=== PATIENT | female | born 1960 | race Caucasian/White ===

== ENCOUNTER → 2016-05-20 | Outpatient (REF) | payer BC, OTHER ==
[2016-05-20 14:05] LABS: PERCENT SATURATION 13.2 % (13.2-37.4)
== END ==
LOC: M LAB REF 13:10
PROVIDERS: ATTEND Internal Medicine Medical Oncology
DX: D68.9 Coagulation defect, unspecified (principal)

== ENCOUNTER → 2016-07-13 | Outpatient (REF) | payer BC | LOC: M LAB REF 09:30 | PROVIDERS: ATTEND Physician Assistant | DX: N76.0 Acute vaginitis (principal) ==

== ENCOUNTER → 2016-09-21 | Outpatient (CLI) | payer BC, OTHER ==
--- NOTE | 2016-09-21 18:17 | REP ---
Clinical: Trauma. Technique: AP and lateral views of the right tibia / fibula. Findings: Osseous structures, joint spaces, and surrounding soft tissues are normal. No acute fracture dislocation. No subcutaneous emphysema or radiodense foreign body. Impression: Normal right tibia / fibula radiographs. Signed by Jonathan Covington MD 09/21/2016 06:09 P
== END ==
LOC: M ADAMS 17:46
PROVIDERS: ATTEND Physician Assistant
DX: M79.661 Pain in right lower leg (principal)

== ENCOUNTER → 2016-12-21 | Outpatient (REF) | payer MEDICAID ==
[~2016-12-21] MED LIST: ACID1CAP PO; ALBU17IN INH; ALBU83IN INH; AZEL0.1S3; CETI10TA PO; ESCI10TA2 PO; FURO20TA2 PO; IBUP40TA PO; MELA10CA PO; NORE0.353 PO; PANT40TA2 PO; PROBCAP4 PO; RANI150T PO; SYMB16INH INH; TRAZO50TA PO; TYLE325T5 PO
== END ==
LOC: M SFHCWAGY 08:00
PROVIDERS: ATTEND Nurse Practitioner Family
DX: Z01.419 Encounter for gynecological examination (general) (routine) without abnormal findings (principal)

== ENCOUNTER → 2016-12-21 | Outpatient (REF) | payer MEDICAID | LOC: M SFHCWAGY 08:40 | PROVIDERS: ATTEND Nurse Practitioner Family | DX: Z01.419 Encounter for gynecological examination (general) (routine) without abnormal findings (principal) ==

== ENCOUNTER → 2016-12-30 | Outpatient (REF) | payer OTHER, MEDICAID | LOC: M SFHCWAGY 13:30 | PROVIDERS: ATTEND Nurse Practitioner Family | DX: L29.8 Other pruritus (principal); R30.0 Dysuria ==

== ENCOUNTER → 2017-01-08 | Outpatient (CLI) | payer OTHER ==
[~2017-01-08] VITALS: Ht 154.9 cm; Wt 65.3 kg
[~2017-01-08] MED LIST changes: +LIDOCAINE 2% INJ 100 MG/5 ML SDV (FOR ANES.) As Ordered ONE; +NS 1,000 ML IV ONE; +PROPOFOL 200 MG/20 ML VIAL As Ordered ONE; +fentaNYL 100 MCG/2 ML INJECTION (J3010) As Ordered ONE
--- NOTE | 2017-01-08 12:56 | ROOR ---
Patient Name: Winnie Shen Procedure Date: 01/08/2017 12:18 PM Date of : 1960 Age: 56 Room: [facility] Gender: Female Note Status: Finalized Procedure: Colonoscopy Indications: Iron deficiency anemia Providers: Saud Gracia MD Referring MD: Waleska HASTINGS MD Requesting Provider: Medicines: Monitored Anesthesia Care Complications: No immediate complications. Procedure: Pre-Anesthesia Assessment: - Prior to the procedure, a History and Physical was performed, and patient medications and allergies were reviewed. The patient is competent. The risks and benefits of the procedure and the sedation options and risks were discussed with the patient. All questions were answered and informed consent was obtained. Patient identification and proposed procedure were verified by the physician, the nurse and the mental health orderly in the procedure room. Mental Status Examination: alert and oriented. Airway Examination: normal oropharyngeal airway and neck mobility. Respiratory Examination: clear to auscultation. CV Examination: normal. Prophylactic Antibiotics: The patient does not require prophylactic antibiotics. Prior Anticoagulants: The patient has taken no previous anticoagulant or antiplatelet agents. ASA Grade Assessment: II - A patient with mild systemic disease. After reviewing the risks and benefits, the patient was deemed in satisfactory condition to undergo the procedure. The anesthesia plan was to use monitored anesthesia care (MAC). Immediately prior to administration of medications, the patient was re-assessed for adequacy to receive sedatives. The heart rate, respiratory rate, oxygen saturations, blood pressure, adequacy of pulmonary ventilation, and response to care were monitored throughout the procedure. The physical status of the patient was re-assessed after the procedure. The Colonoscope was introduced through the anus and advanced to the terminal ileum, with identification of the appendiceal orifice and IC valve. The colonoscopy was performed without difficulty. The patient tolerated the procedure well. The quality of the bowel preparation was good. The terminal ileum, ileocecal valve, appendiceal orifice, and rectum were photographed. Scope insertion time was 3 minutes. Scope withdrawal time was 10 minutes. The total duration of the procedure was 14 minutes. Findings: The perianal and digital rectal examinations were normal. The terminal ileum appeared normal. A 3 mm polyp was found in the transverse colon. The polyp was sessile. The polyp was removed with a cold biopsy forceps. Resection and retrieval were complete. Verification of patient identification for the specimen was done by the physician and nurse using the patient's name, date and medical record number. Estimated blood loss was minimal. Non-bleeding external and internal hemorrhoids were found during retroflexion. The hemorrhoids were small. Anal papilla(e) were hypertrophied. Biopsies were taken with a cold forceps for histology. Impression: - The examined portion of the ileum was normal. - One 3 mm polyp in the transverse colon, removed with a cold biopsy forceps. Resected and retrieved. - Non-bleeding external and internal hemorrhoids. - Anal papilla(e) were hypertrophied. Biopsied. Recommendation: - Patient has a contact number available for emergencies. The signs and symptoms of potential delayed complications were discussed with the patient. Return to normal activities tomorrow. Written discharge instructions were provided to the patient. - Resume previous diet. - Continue present medications. - Await pathology results. - Repeat colonoscopy in 5-10 years for surveillance based on pathology results. - To schedule HRA or flexible sigmoidscopy based on pathology. - Return to GI clinic as previously scheduled on 01/22/2017 at 9:00 AM. - Return to primary care physician. Saud Gracia MD Saud Gracia MD 01/08/2017 12:56:35 PM This report has been signed electronically. Number of Addenda: 0 Note Initiated On: 01/08/2017 12:18 PM Estimated Blood Loss: Estimated blood loss was minimal.
--- NOTE | 2017-01-08 12:59 | ROOR ---
Patient Name: Winnie Shen Procedure Date: 01/08/2017 12:18 PM Date of : 1960 Age: 56 Room: [facility] Gender: Female Note Status: Finalized Procedure: Upper GI endoscopy Indications: Iron deficiency anemia, Heme positive stool Providers: Saud Gracia MD Referring MD: Waleska HASTINGS MD Requesting Provider: Medicines: Monitored Anesthesia Care Complications: No immediate complications. Procedure: Pre-Anesthesia Assessment: - Prior to the procedure, a History and Physical was performed, and patient medications and allergies were reviewed. The patient is competent. The risks and benefits of the procedure and the sedation options and risks were discussed with the patient. All questions were answered and informed consent was obtained. Patient identification and proposed procedure were verified by the physician, the nurse and the configuration management advisor in the procedure room. Mental Status Examination: alert and oriented. Airway Examination: normal oropharyngeal airway and neck mobility. Respiratory Examination: clear to auscultation. CV Examination: normal. Prophylactic Antibiotics: The patient does not require prophylactic antibiotics. Prior Anticoagulants: The patient has taken no previous anticoagulant or antiplatelet agents. ASA Grade Assessment: II - A patient with mild systemic disease. After reviewing the risks and benefits, the patient was deemed in satisfactory condition to undergo the procedure. The anesthesia plan was to use monitored anesthesia care (MAC). Immediately prior to administration of medications, the patient was re-assessed for adequacy to receive sedatives. The heart rate, respiratory rate, oxygen saturations, blood pressure, adequacy of pulmonary ventilation, and response to care were monitored throughout the procedure. The physical status of the patient was re-assessed after the procedure. The Endoscope was introduced through the mouth, and advanced to the second part of duodenum. The upper GI endoscopy was accomplished without difficulty. The patient tolerated the procedure well. Findings: The examined esophagus was normal. Whitish plaques noted- easily scrapped with scope. Biopsied. Multiple 6 to 10 mm sessile fundic gland polyps with no bleeding and no stigmata of recent bleeding were found in the gastric fundus and in the gastric body. The polyp was removed with a cold biopsy forceps. Resection and retrieval were complete. Verification of patient identification for the specimen was done by the physician and nurse using the patient's name, date and medical record number. Estimated blood loss was minimal. The duodenal bulb and second portion of the duodenum were normal. Biopsies for histology were taken with a cold forceps for evaluation of celiac disease. Impression: - Normal esophagus. - Multiple fundic gland polyps. Resected and retrieved. - Normal duodenal bulb and second portion of the duodenum. Biopsied. Recommendation: - Patient has a contact number available for emergencies. The signs and symptoms of potential delayed complications were discussed with the patient. Return to normal activities tomorrow. Written discharge instructions were provided to the patient. - Resume previous diet. - Continue present medications. - Await pathology results. - Return to GI clinic as previously scheduled. - Return to primary care physician. Saud Gracia MD Saud Gracia MD 01/08/2017 12:59:19 PM This report has been signed electronically. Number of Addenda: 0 Note Initiated On: 01/08/2017 12:18 PM Estimated Blood Loss: Estimated blood loss was minimal.
[2017-01-08 13:13] VITALS: BP 155/73
== END ==
LOC: M OPP 10:29
PROVIDERS: ATTEND Internal Medicine Gastroenterology
DX: D50.9 Iron deficiency anemia, unspecified (principal); R19.5 Other fecal abnormalities; D12.3 Benign neoplasm of transverse colon; K62.89 Other specified diseases of anus and rectum; K64.4 Residual hemorrhoidal skin tags; K64.8 Other hemorrhoids; K31.7 Polyp of stomach and duodenum; K31.89 Other diseases of stomach and duodenum; K21.9 Gastro-esophageal reflux disease without esophagitis; R60.0 Localized edema; Z87.19 Personal history of other diseases of the digestive system; R12 Heartburn; F41.9 Anxiety disorder, unspecified; F32.9 Major depressive disorder, single episode, unspecified; J45.909 Unspecified asthma, uncomplicated; G47.30 Sleep apnea, unspecified; R06.83 Snoring; Z87.440 Personal history of urinary (tract) infections; Q60.0 Renal agenesis, unilateral; F12.20 Cannabis dependence, uncomplicated; Z88.8 Allergy status to other drugs, medicaments and biological substances
CPT/HCPCS: 43239; 45380; 88305; J3010

== ENCOUNTER → 2017-01-22 | Outpatient (CLI) | payer OTHER ==
[~2017-01-22] MED LIST changes: -LIDOCAINE 2% INJ 100 MG/5 ML SDV (FOR ANES.) As Ordered ONE; -NS 1,000 ML IV ONE; -PROPOFOL 200 MG/20 ML VIAL As Ordered ONE; -fentaNYL 100 MCG/2 ML INJECTION (J3010) As Ordered ONE
[2017-01-22 10:35] LABS: BASO % 0.3 % (0.0-1.0); EOS # 0.1 K/mm3 (0.0-0.50); EOS % 1.2 % (0.0-3.0); LARGE UNSTAINED CELL # 0.1 K/mm3 (0.0-0.4); LARGE UNSTAINED CELL % 1.7 % (0.0-4.0); LYMPH # 1.4 K/mm3 (1.5-4.5); LYMPH % 18.3 % (24.0-44.0); MEAN CORPUSCULAR HEMOGLOBIN 29.5 pg (27.0-33.0); MEAN CORPUSCULAR HGB CONC 34.3 g/dl (32.0-36.5); MEAN CORPUSCULAR VOLUME 86.2 fl (80.0-96.0); MONO # 0.3 K/mm3 (0.0-0.8); MONO % 4.1 % (0.0-5.0); NEUTROPHILS # 5.7 K/mm3 (1.8-7.7); NEUTROPHILS % 74.5 % (36.0-66.0); PLATELET COUNT, AUTOMATED 252 k/mm3 (150-450); RED CELL DISTRIBUTION WIDTH 14.2 % (11.5-14.5); WHITE BLOOD COUNT 7.7 K/mm3 (4.0-10.0)
[2017-01-22 10:57] LABS: PERCENT SATURATION 16.9 % (13.2-45.0)
== END ==
LOC: M LAB 10:07
PROVIDERS: ATTEND Internal Medicine Gastroenterology
DX: D50.0 Iron deficiency anemia secondary to blood loss (chronic) (principal)

== ENCOUNTER → 2017-02-08 | Outpatient (CLI) | payer OTHER ==
--- NOTE | 2017-02-08 08:54 | REPMRS ---
Patient History The patient states she had a clinical breast exam in 02/16 Patient is postmenopausal. No known family history of cancer. Took unspecified hormones for 2 months. Digital Woman Screen Mammo: February 08, 2017 - Exam #: [id number] Bilateral CC and MLO view(s) were taken. Technologist: Yaz Peres, Technologist Prior study comparison: February 19, 2016, digital woman screen mammo performed at [facility]. December 18, 2014, digital woman screen mammo performed at [facility]. July 22, 2011, digital woman screen mammo performed at [facility]. FINDINGS: The breast tissue is heterogeneously dense. This may lower the sensitivity of mammography. There is a moderate amount of heterogeneously dense fibroglandular tissue which is fairly symmetric. There is no interval development of dominant mass, architectural distortion, or clustered microcalcification typical of malignancy. There has been no change in the appearance of the mammogram from the prior studies. ASSESSMENT: BI-RADS/ACR category 1 mammogram. Negative. Recommendation Routine screening mammogram of both breasts in 1 year (for women over age 40). This mammogram was interpreted with the aid of an FDA-approved computer-aided dectection system. Electronically Signed By: Zafar Hunt MD 02/08/17 [id number]
== END ==
LOC: M WHC 07:50
PROVIDERS: ATTEND Nurse Practitioner Family
DX: Z12.31 Encounter for screening mammogram for malignant neoplasm of breast (principal)

== ENCOUNTER → 2017-06-28 | Outpatient (REF) | payer BC | LOC: M LAB REF 09:23 | DX: R30.0 Dysuria (principal) ==

== ENCOUNTER → 2017-08-06 | Outpatient (REF) | payer BC | LOC: M LAB REF 10:13 | DX: R30.0 Dysuria (principal) | CPT/HCPCS: 87086 ==

== ENCOUNTER → 2017-10-18 | Outpatient (REF) | payer BC | LOC: M LAB REF 16:16 | DX: R10.30 Lower abdominal pain, unspecified (principal) | CPT/HCPCS: 87086 ==

== ENCOUNTER → 2017-10-28 | Outpatient (CLI) | payer BC | LOC: M WHC 08:07 | DX: R10.2 Pelvic and perineal pain (principal) | CPT/HCPCS: 76830 ==

== ENCOUNTER 2017-12-14 08:42 | Emergency (ER) | payer BC ==
[2017-12-14] MEDS: NS 1,000 ML IV (09:30)
[2017-12-14 09:52] LABS: BASO % 0.2 % (0.0-1.0); EOS # 0.1 10^3/uL (0.0-0.50); EOS % 1.2 % (0.0-3.0); HEMATOCRIT 40.5 % (36.0-47.0); HEMOGLOBIN 13.4 g/dl (12.0-15.5); IMMATURE GRANULOCYTE % 0.5 % (0-3.0); LYMPH # 1.6 10^3/uL (1.5-4.5); LYMPH % 15.5 % (24.0-44.0); MEAN CORPUSCULAR HEMOGLOBIN 30.7 pg (27.0-33.0); MEAN CORPUSCULAR HGB CONC 33.1 g/dl (32.0-36.5); MEAN CORPUSCULAR VOLUME 92.7 fl (80.0-96.0); MONO # 0.5 10^3/uL (0.0-0.8); MONO % 4.9 % (0.0-5.0); NEUTROPHILS % 77.7 % (36.0-66.0); PLATELET COUNT, AUTOMATED 204 10^3/uL (150-450); RED BLOOD COUNT 4.37 10^6/uL (4.00-5.40); RED CELL DISTRIBUTION WIDTH 13.9 % (11.5-14.5); WHITE BLOOD COUNT 10.3 10^3/uL (4.0-10.0)
[2017-12-14 10:28] LABS: ALBUMIN 3.6 GM/DL (3.2-5.2); ALKALINE PHOSPHATASE 79 U/L (45-117); ALT/SGPT 16 U/L (12-78); AMYLASE 60 U/L (25-115); ANION GAP 6 MEQ/L (8-16); APPEARANCE, URINE CLOUDY (CLEAR); AST/SGOT 9 U/L (7-37); BACTERIA, URINE AUTO 2+ (NEGATIVE); BILIRUBIN, URINE AUTO NEGATIVE (NEGATIVE); BILIRUBIN,DIRECT 0.2 MG/DL (0.0-0.2); BILIRUBIN,TOTAL 0.8 MG/DL (0.2-1.0); BLOOD UREA NITROGEN 8 MG/DL (7-18); BLOOD, URINE BLOOD 1+ (NEGATIVE); CALCIUM LEVEL 8.1 MG/DL (8.5-10.1); CARBON DIOXIDE LEVEL 29 MEQ/L (21-32); CHLORIDE LEVEL 106 MEQ/L (98-107); COLOR, URINE YELLOW (YELLOW); CREATININE FOR GFR 0.82 MG/DL (0.55-1.30); FREE THYROXINE INDEX 2.7 % (1.3-4.8); GLOMERULAR FILTRATION RATE > 60.0 (>51); GLUCOSE, FASTING 96 MG/DL (70-100); GLUCOSE, URINE (UA) AUTO NEGATIVE (NEGATIVE); KETONE, URINE AUTO NEGATIVE (NEGATIVE); LEUKOCYTE ESTERASE, URINE AUTO 2+ (NEGATIVE); LIPASE 178 U/L (73-393); MUCUS, URINE SMALL (NEGATIVE); NITRITE, URINE AUTO NEGATIVE (NEGATIVE); POTASSIUM SERUM 3.5 MEQ/L (3.5-5.1); PROTEIN, URINE AUTO NEGATIVE (NEGATIVE); RBC, URINE AUTO 2 /HPF (0-3); RENAL EPITHELIAL CELLS 1 /HPF; SODIUM LEVEL 141 MEQ/L (136-145); SQUAMOUS EPITHELIAL CELL UR AU 27 /HPF (0-6); T UPTAKE 34 % (30-39); TOTAL PROTEIN 7.2 GM/DL (6.4-8.2); TRANSITIONAL EPITHELIAL AUTO 1 /HPF; UROBILINOGEN, URINE AUTO 0.2 mg/dL (0.0-2.0); WBC, URINE AUTO 4 /HPF (0-3)
[2017-12-14] MEDS: METOCLOPRAMIDE INJ 10MG/2ML VIAL (J2765) IV (10:52)
[2017-12-14] MEDS: KETOROLAC 30 MG/ML VIAL (J1885) IV (10:57)
[2017-12-14] MEDS: NS 500 ML IV (12:28)
[2017-12-14] MEDS ORDERED: ISOVUE-370 76% 100ML VIAL (Q9967) As Ordered (12:30)
== END 2017-12-14 13:25 | disposition home or self-care (01) ==
LOC: M ED 08:42
DX: R11.2 Nausea with vomiting, unspecified (principal); R61 Generalized hyperhidrosis; R19.7 Diarrhea, unspecified; J45.909 Unspecified asthma, uncomplicated; K21.9 Gastro-esophageal reflux disease without esophagitis; F41.9 Anxiety disorder, unspecified; Z90.5 Acquired absence of kidney; Z88.8 Allergy status to other drugs, medicaments and biological substances; Z79.899 Other long term (current) drug therapy
CPT/HCPCS: Q9967

== ENCOUNTER → 2017-12-22 | Outpatient (REF) | payer BC ==
[2017-12-22 18:40] LABS: C REACTIVE PROTEIN QUANTITATIV 0.31 MG/DL (0.00-0.30); LIPASE 192 U/L (73-393)
[2017-12-22 18:40] LABS: AMYLASE 68 U/L (25-115)
== END ==
LOC: M LAB REF 17:07
DX: R61 Generalized hyperhidrosis (principal); R11.0 Nausea
CPT/HCPCS: 82150

== ENCOUNTER → 2017-12-24 | Outpatient (REF) | payer BC | LOC: M LAB REF 12:52 | DX: R19.7 Diarrhea, unspecified (principal) | CPT/HCPCS: 87507 ==

== ENCOUNTER → 2018-05-13 | Outpatient (CLI) | payer OTHER ==
[~2018-05-13] MED LIST changes: +FLON1SPR; -PANT40TA2 PO; +PANT40TA3 PO; +REGL10TA6 PO
--- NOTE | 2018-05-13 10:47 | REP ---
MRI BRAIN WITHOUT AND WITH CONTRAST: HISTORY: Mixed left hearing loss. Several punctate areas of increased signal intensity on T2-weighted images are present in the subcortical white matter. This represents small vessel ischemic disease. There is no intraparenchymal hemorrhage, infarct, mass or midline shift. There is no abnormal enhancement. The ventricular system and cortical sulci are dilated consistent with minimal volume loss. There is no extracerebral collection. There is no cerebellopontine angle mass. The inner ear structures are normal in appearance. The mastoid air cells are clear. Mucosal thickening is present in the ethmoid, maxillary and left frontal sinuses. IMPRESSION: 1. Minimal small vessel ischemic disease. 2. Minimal volume loss. Electronically Signed by Donny Ramirez MD 05/13/2018 10:50 A
== END ==
LOC: M PLARAD 07:56
PROVIDERS: ATTEND Otolaryngology
DX: H90.A31 Mixed conductive and sensorineural hearing loss, unilateral, right ear with restricted hearing on the contralateral side (principal)

== ENCOUNTER 2018-05-25 06:52 | Day surgery (SDC) | payer OTHER ==
[~2018-05-25] VITALS: Ht 154.9 cm; Wt 68.0 kg
[~2018-05-25 06:52] MED LIST changes: +AZEL1SPR3; +DICY20TA PO
[2018-05-25] MEDS ORDERED: CIPRODEX OTIC SUSP 7.5ML As Ordered ONE (07:10)
[2018-05-25] MEDS ORDERED: PHENYLEPHRINE 0.5% NASAL SPRAY 15 ML As Ordered ONE (07:10)
[2018-05-25] MEDS ORDERED: LIDOCAINE 2% INJ 100 MG/5 ML SDV (FOR ANES.) As Ordered ONE (07:19)
[2018-05-25] MEDS ORDERED: MIDAZOLAM INJ 2 MG/2 ML VIAL (J2250) As Ordered ONE (07:19)
[2018-05-25] MEDS ORDERED: fentaNYL 100 MCG/2 ML INJECTION (J3010) As Ordered ONE (07:19)
[2018-05-25] MEDS ORDERED: PROPOFOL 200 MG/20 ML VIAL As Ordered ONE (07:19)
[2018-05-25] MEDS ORDERED: dexameTHASONE 4 MG/ML 1ML VIAL (J1100) As Ordered ONE (07:48)
[2018-05-25] MEDS ORDERED: KETOROLAC 60 MG/2 ML VIAL (J1885) As Ordered ONE (07:48)
[2018-05-25] MEDS ORDERED: ONDANSETRON 4MG/2ML VIAL (J2405) IV PRN (08:15)
[2018-05-25] MEDS ORDERED: fentaNYL 100 MCG/2 ML INJECTION (J3010) IV PRN (08:15)
[2018-05-25] MEDS ORDERED: LR 1,000 ML IV SCH (08:15)
[2018-05-25 09:05] VITALS: BP 140/67
--- NOTE | 2018-05-25 12:35 | RO ---
DATE OF PROCEDURE: 05/25/2018 PREPROCEDURE DIAGNOSIS: Persistent effusion of the right ear. POSTPROCEDURE DIAGNOSIS: Persistent effusion of the right ear. PROCEDURE PERFORMED: Right tympanostomy. SURGEON: Alejandro Daniel MD INFORMATICA DEVELOPER: ANESTHESIA: General. CLINICAL PREAMBLE: This 57-year-old woman presented to the office complaining of hearing loss in the right ear. Physical examination revealed fluid in the right ear. Nasal endoscopy revealed no evidence of mass lesion in the nasopharyngeal area, including the right fossa of [place]. Management options, including right tympanostomy have been discussed. The patient understood and consented to the procedure. DESCRIPTION OF PROCEDURE: The patient was identified in preoperative holding and brought to the operating room in stable condition. He was laid in supine position on the operating room tablet. The patient received general anesthesia followed by laryngeal intubation. The patient was prepped and draped in the usual fashion for the procedure. The patient's head was turned to the left side to expose the right ear. The ear speculum was inserted and cerumen was debrided and there was good visualization using the operating laryngoscope with binocular magnification. The right tympanic membrane was visualized and found to be intact. Myringotomy incision was made over the anterior-inferior quadrant of the tympanic membrane. The right middle ear was suctioned free of fluid. A 7 mm straight shank tympanostomy tube was inserted. Ciprodex drops were instilled with cotton balls to occlude the ear canal. Sponge and instrument counts were correct. No complications. ESTIMATED BLOOD LOSS: Nil. General anesthesia was reversed and the patient was extubated and brought to the recovery room in stable condition.
== END 2018-05-25 09:20 | disposition home or self-care (01) ==
LOC: M SDC 06:52
PROVIDERS: ATTEND Otolaryngology
DX: H65.192 Other acute nonsuppurative otitis media, left ear (principal); J45.909 Unspecified asthma, uncomplicated; K21.9 Gastro-esophageal reflux disease without esophagitis; F41.9 Anxiety disorder, unspecified; G47.30 Sleep apnea, unspecified; R60.0 Localized edema; K58.9 Irritable bowel syndrome, unspecified; Q60.0 Renal agenesis, unilateral; F32.9 Major depressive disorder, single episode, unspecified; R51 Headache; R06.83 Snoring; G47.33 Obstructive sleep apnea (adult) (pediatric); J30.89 Other allergic rhinitis; Z91.09 Other allergy status, other than to drugs and biological substances; Z79.899 Other long term (current) drug therapy
CPT/HCPCS: 69436; J1100; J2250; J3010

== ENCOUNTER → 2019-01-07 | Outpatient (REF) | payer OTHER ==
[~2019-01-07] MED LIST changes: +TRAZ1TAB10 PO; -TRAZO50TA PO
== END ==
LOC: M LAB REF 10:18
PROVIDERS: ATTEND Physician Assistant Medical
DX: R30.0 Dysuria (principal)

== ENCOUNTER → 2019-03-08 | Outpatient (REF) | payer OTHER ==
[2019-03-10 14:17] LABS: HPV HYBRID CAPTURE II Negative (Negative)
== END ==
LOC: M SFHCWAGY 12:00
PROVIDERS: ATTEND Nurse Practitioner Family
DX: Z12.4 Encounter for screening for malignant neoplasm of cervix (principal); N76.0 Acute vaginitis

== ENCOUNTER → 2019-03-08 | Outpatient (CLI) | payer OTHER ==
--- NOTE | 2019-03-08 15:02 | REPMRS ---
Patient History The patient states she had a clinical breast exam in 03/2019. Patient is postmenopausal. No known family history of cancer. Took unspecified hormones for 2 months. Digital Woman Screen Mammo: March 08, 2019 - Exam #: [id number] Bilateral CC and MLO view(s) were taken. Technologist: Emily Foss, Technologist Prior study comparison: February 08, 2017, digital woman screen mammo performed at [facility]. February 19, 2016, digital woman screen mammo performed at [facility]. December 18, 2014, digital woman screen mammo performed at [facility]. FINDINGS: The breast tissue is heterogeneously dense. This may lower the sensitivity of mammography. There is a moderate amount of heterogeneously dense fibroglandular tissue which is fairly symmetric. There is no interval development of dominant mass, architectural distortion, or grouped microcalcification typical of malignancy. There has been no change in the appearance of the mammogram from the prior studies. 3-D tomosynthesis shows no additional findings. Assessment: BI-RADS/ACR category 1 mammogram. Negative Mammogram. Recommendation Routine screening mammogram of both breasts in 1 year (for women over age 40). This patient's Lifetime Breast Cancer RIsk is estimated at 8.8 %. This mammogram was interpreted with the aid of an FDA-approved computer-aided dectection system. Electronically Signed By: Zafar Hunt MD 03/08/19 [id number]
== END ==
LOC: M WHC 11:27
PROVIDERS: ATTEND Nurse Practitioner Family
DX: Z12.31 Encounter for screening mammogram for malignant neoplasm of breast (principal); Z78.0 Asymptomatic menopausal state

== ENCOUNTER → 2019-06-19 | Outpatient (CLI) | payer MEDICAID | LOC: M OUTALCOH 09:14 | PROVIDERS: ATTEND Psychiatry & Neurology Addiction Medicine | DX: F10.20 Alcohol dependence, uncomplicated (principal); F12.10 Cannabis abuse, uncomplicated ==

== ENCOUNTER 2019-06-29 13:31 | Outpatient (RCR) | payer MEDICAID | END 2019-07-01 | LOC: M OUTALCOH 13:31 | PROVIDERS: ATTEND Psychiatry & Neurology Addiction Medicine | DX: F10.20 Alcohol dependence, uncomplicated (principal); F12.10 Cannabis abuse, uncomplicated ==

== ENCOUNTER 2019-07-27 09:00 | Outpatient (RCR) | payer MEDICAID | END 2019-08-01 | LOC: M OUTALCOH 09:00 | PROVIDERS: ATTEND Psychiatry & Neurology Addiction Medicine | DX: F10.20 Alcohol dependence, uncomplicated (principal); F12.10 Cannabis abuse, uncomplicated ==

== ENCOUNTER 2019-08-24 10:00 | Outpatient (RCR) | payer MEDICAID | END 2019-08-31 | LOC: M OUTALCOH 10:00 | PROVIDERS: ATTEND Psychiatry & Neurology Addiction Medicine | DX: F10.20 Alcohol dependence, uncomplicated (principal); F12.10 Cannabis abuse, uncomplicated ==

== ENCOUNTER 2019-09-15 10:00 | Outpatient (RCR) | payer MEDICAID | END 2019-10-01 | LOC: M OUTALCOH 10:00 | PROVIDERS: ATTEND Psychiatry & Neurology Addiction Medicine | DX: F10.20 Alcohol dependence, uncomplicated (principal); F12.10 Cannabis abuse, uncomplicated ==

== ENCOUNTER → 2019-09-22 | Outpatient (REF) | payer MEDICAID | LOC: M LAB REF 18:55 | PROVIDERS: ATTEND Physician Assistant | DX: R30.0 Dysuria (principal) ==

== ENCOUNTER → 2020-03-11 | Outpatient (CLI) | payer OTHER ==
[~2020-03-11] MED LIST changes: +PANT40TA29 PO; -PANT40TA3 PO
--- NOTE | 2020-03-11 13:21 | REPMRS ---
Patient History The patient states she had a clinical breast exam in 03/2020. No known family history of cancer. Took unspecified hormones for 2 months. Digital Woman Screen Mammo: March 11, 2020 - Exam #: [id number] Bilateral CC and MLO view(s) were taken. Technologist: Emily Foss, Technologist Prior study comparison: March 08, 2019, bilateral digital woman screen mammo performed at [facility]. February 08, 2017, digital woman screen mammo performed at [facility]. February 19, 2016, digital woman screen mammo performed at [facility]. FINDINGS: There are scattered fibroglandular densities. The Volpara volumetric breast density category is:B. There has been no change in the appearance of the mammogram from the prior studies. There is a mild amount of scattered fibroglandular density which is fairly symmetric. There is no interval development of dominant mass, architectural distortion, or grouped microcalcification suggestive of malignancy. 3-D tomosynthesis shows no additional findings. Assessment: BI-RADS/ACR category 1 mammogram. Negative Mammogram. Recommendation Routine screening mammogram of both breasts in 1 year (for women over age 40). This patient's Lifetime Breast Cancer Risk is estimated at 8.5 %. This mammogram was interpreted with the aid of an FDA-approved computer-aided dectection system. Electronically Signed By: Zafar Hunt MD 03/11/20 [id number]
== END ==
LOC: M WHC 11:06
PROVIDERS: ATTEND Nurse Practitioner Family
DX: Z12.31 Encounter for screening mammogram for malignant neoplasm of breast (principal)

== ENCOUNTER → 2020-05-30 | Outpatient (CLI) | payer OTHER ==
[~2020-05-30] MED LIST changes: -DICY20TA PO; +DICY20TA3 PO; +ESCI10TA16 PO; -ESCI10TA2 PO
--- NOTE | 2020-05-30 15:55 | DEXAMM ---
INDICATION: Z13.820 SCREENING FOR OSTEOPORSIS. COMPARISON: Comparison studies are from July 22, 2011, July 23, 2009, and February 26, 2006.. TECHNIQUE: Bone density was measured using dual-energy x-ray absorptionmetry (DEXA). FINDINGS: AP SPINE L1-L4 BMD 1.075 g/cm2 Young Adult T-Score -1.0 Age Matched Z-Score 0.1. LT FEMUR, TOTAL BMD 0.954 g/cm2 Young Adult T-Score -0.4 Age Matched Z-Score 0.4. LT NECK BMD 0.925 g/cm2 Young Adult T-Score -0.8 Age Matched Z-Score 0.4. RT FEMUR, TOTAL BMD 1.040 g/cm2 Young Adult T-Score 0.3 Age Matched Z-Score 1.1. RT NECK BMD 0.994 g/cm2 Young Adult T-Score -0.3 Age Matched Z-Score 0.8. IMPRESSION: There is low bone density of the spine. There is normal bone density of the left hip. There is normal bone density of the right hip. The density of the spine has increased 2.9% since the initial exam on February 26, 2006. The density of the spine increased 6.4% since most recent exam on July 22, 2011. The density of the left hip has decreased 7.2% since initial exam on February 26, 2006. The density of the left hip has decreased 5.5% since most recent exam on July 22, 2011. The density of the right hip has decreased 7.6% since the initial exam on February 26, 2006. The density of the right hip has decreased 3.7% since the most recent exam on July 22, 2011. FOLLOW-UP: Recommendation for the next bone density exam: 2 years. <Electronically signed by Zafar Hunt > 05/30/20 [id number]
== END ==
LOC: M WHC 12:49
PROVIDERS: ATTEND Internal Medicine
DX: Z13.820 Encounter for screening for osteoporosis (principal); M85.88 Other specified disorders of bone density and structure, other site

== ENCOUNTER → 2020-12-03 | Outpatient (CLI) | payer OTHER ==
[~2020-12-03] MED LIST changes: +IBUP1TAB5 PO; -IBUP40TA PO
== END ==
LOC: M WUC 13:32
PROVIDERS: ATTEND Internal Medicine
DX: R50.9 Fever, unspecified (principal); J06.9 Acute upper respiratory infection, unspecified; R61 Generalized hyperhidrosis

== ENCOUNTER → 2021-03-01 | Outpatient (CLI) | payer OTHER ==
[2021-03-01 13:32] LABS: BASO % 0.3 % (0.0-1.0); EOS # 0.2 10^3/uL (0.0-0.5); EOS % 2.7 % (0.0-3.0); HEMATOCRIT 39.4 % (36.0-47.0); HEMOGLOBIN 13.1 g/dl (12.0-15.5); LYMPH # 1.4 10^3/uL (1.5-5.0); MEAN CORPUSCULAR HGB CONC 33.2 g/dl (32.0-36.5); MEAN CORPUSCULAR VOLUME 96.1 fl (80.0-96.0); MONO # 0.4 10^3/uL (0.0-0.8); MONO % 7.2 % (2.0-8.0); NEUTROPHILS # 3.9 10^3/uL (1.5-8.5); NEUTROPHILS % 66.3 % (36.0-66.0); PLATELET COUNT, AUTOMATED 169 10^3/uL (150-450); WHITE BLOOD COUNT 5.9 10^3/uL (4.0-10.0)
[2021-03-01 13:50] LABS: C REACTIVE PROTEIN QUANTITATIV 1.82 MG/DL (0.00-0.30); RHEUMATOID FACTOR QUANT < 10.0 IU/ML (<15.0)
[2021-03-01 14:27] LABS: ERYTHROCYTE SEDIMENTATION RATE 17 mm/hr (0-30)
== END ==
LOC: M LAB 12:04
PROVIDERS: ATTEND Physician Assistant
DX: M25.531 Pain in right wrist (principal)

== ENCOUNTER → 2021-04-12 | Outpatient (REF) | payer OTHER ==
[2021-04-12 14:18] LABS: RSV AMPLIFICATION NEGATIVE (NEGATIVE)
== END ==
LOC: M LAB REF 13:24
PROVIDERS: ATTEND Physician Assistant Medical
DX: R05.9 Cough, unspecified (principal); R50.9 Fever, unspecified

== ENCOUNTER → 2021-07-29 | Outpatient (REF) | payer OTHER | LOC: M LAB REF 16:29 | PROVIDERS: ATTEND Internal Medicine | DX: N39.0 Urinary tract infection, site not specified (principal) ==

== ENCOUNTER 2021-08-21 14:37 | Outpatient (RCR) | payer MEDICAID | END 2021-08-30 | LOC: M OUTALCOH 14:37 | PROVIDERS: ATTEND Psychiatry & Neurology Psychiatry | DX: F10.20 Alcohol dependence, uncomplicated (principal); F12.20 Cannabis dependence, uncomplicated ==

== ENCOUNTER → 2021-10-28 | Outpatient (CLI) | payer MEDICAID, OTHER ==
[~2021-10-28] MED LIST changes: +ALBU2.5V10 INH; -ALBU83IN INH
== END ==
LOC: M OUTALCOH 07:59
PROVIDERS: ATTEND Psychiatry & Neurology Psychiatry
DX: F10.10 Alcohol abuse, uncomplicated (principal)

== ENCOUNTER 2021-11-05 12:53 | Outpatient (RCR) | payer MEDICAID | END 2021-11-30 | LOC: M OUTALCOH 12:53 | PROVIDERS: ATTEND Psychiatry & Neurology Psychiatry | DX: F10.20 Alcohol dependence, uncomplicated (principal); F12.20 Cannabis dependence, uncomplicated ==

== ENCOUNTER → 2022-01-19 | Outpatient (REF) | payer MEDICAID | LOC: M LAB REF 16:03 | PROVIDERS: ATTEND Internal Medicine | DX: G60.9 Hereditary and idiopathic neuropathy, unspecified (principal) ==

== ENCOUNTER → 2022-06-18 | Outpatient (CLI) | payer MEDICAID, OTHER ==
[~2022-06-18] MED LIST changes: +BUSP1TAB PO; +LEXA1TAB PO; +OMEP40CA4 PO; +PROA1AER2 INH
== END ==
LOC: M LABSMTC 11:47
PROVIDERS: ATTEND Anesthesiology
DX: Z01.812 Encounter for preprocedural laboratory examination (principal); Z11.52 Encounter for screening for COVID-19

== ENCOUNTER 2022-06-23 06:49 | Day surgery (SDC) | payer MEDICAID, OTHER ==
[~2022-06-23] VITALS: Ht 154.9 cm; Wt 68.9 kg
[~2022-06-23 06:49] MED LIST changes: +NS 1,000 ML IV ONE
[2022-06-23] MEDS ORDERED: propofoL 200 MG/20 ML VIAL As Ordered ONE ×2 (08:22→08:40)
[2022-06-23] MEDS ORDERED: LIDOCAINE 2% 100MG/5ML SDV (FOR ANES.) As Ordered ONE (08:49)
[2022-06-23 09:20] VITALS: BP 137/68
== END 2022-06-23 09:25 | disposition home or self-care (01) ==
LOC: M OPP 06:49
PROVIDERS: ATTEND Internal Medicine Gastroenterology
DX: Z12.11 Encounter for screening for malignant neoplasm of colon (principal); Z86.010 Personal history of colon polyps; D12.2 Benign neoplasm of ascending colon; D12.3 Benign neoplasm of transverse colon; K64.4 Residual hemorrhoidal skin tags; K64.8 Other hemorrhoids; K57.30 Diverticulosis of large intestine without perforation or abscess without bleeding; J45.909 Unspecified asthma, uncomplicated; G47.33 Obstructive sleep apnea (adult) (pediatric); F17.290 Nicotine dependence, other tobacco product, uncomplicated; Z79.51 Long term (current) use of inhaled steroids; Z79.52 Long term (current) use of systemic steroids; Z79.899 Other long term (current) drug therapy; Z91.048 Other nonmedicinal substance allergy status; Z87.19 Personal history of other diseases of the digestive system

== ENCOUNTER 2022-09-07 07:19 | Emergency (ER) | payer OTHER ==
[~2022-09-07] VITALS: Ht 154.9 cm; Wt 68.2 kg
[~2022-09-07 07:19] MED LIST changes: -NS 1,000 ML IV ONE
[2022-09-07 11:08] LABS: BASO % 0.4 % (0.0-1.0); EOS # 0.1 10^3/uL (0.0-0.5); EOS % 2.3 % (0.0-3.0); HEMATOCRIT 39.1 % (36.0-47.0); HEMOGLOBIN 12.6 g/dl (12.0-15.5); LYMPH # 1.4 10^3/uL (1.5-5.0); LYMPH % 26.5 % (24.0-44.0); MEAN CORPUSCULAR HEMOGLOBIN 28.5 pg (27.0-33.0); MEAN CORPUSCULAR HGB CONC 32.2 g/dl (32.0-36.5); MEAN CORPUSCULAR VOLUME 88.5 fl (80.0-96.0); MONO # 0.3 10^3/uL (0.0-0.8); MONO % 5.6 % (2.0-8.0); NEUTROPHILS # 3.5 10^3/uL (1.5-8.5); PLATELET COUNT, AUTOMATED 231 10^3/uL (150-450); RED BLOOD COUNT 4.42 10^6/uL (4.00-5.40); WHITE BLOOD COUNT 5.3 10^3/uL (4.0-10.0)
[2022-09-07 11:45] LABS: ALKALINE PHOSPHATASE 87 U/L (46-116); ALT/SGPT 18 U/L (7.0-40); AST/SGOT 50 U/L (<34); BILIRUBIN,DIRECT 0.1 MG/DL (<0.4); BILIRUBIN,TOTAL 0.6 MG/DL (0.3-1.2); BLOOD UREA NITROGEN 15 MG/DL (9-23); CALCIUM LEVEL 8.9 MG/DL (8.3-10.6); CARBON DIOXIDE LEVEL 31 MMOL/L (20-31); CHLORIDE LEVEL 105 MMOL/L (98-107); CREATININE FOR GFR 0.74 MG/DL (0.55-1.30); GLOMERULAR FILTRATION RATE > 60.0 (>45); GLUCOSE, FASTING 97 MG/DL (74-106); POTASSIUM SERUM 4.8 MMOL/L (3.5-5.1); SODIUM LEVEL 139 MMOL/L (136-145)
[2022-09-07 12:45] VITALS: BP 140/60
== END 2022-09-07 13:36 | disposition home or self-care (01) ==
LOC: M ED 07:19
DX: R42 Dizziness and giddiness (principal); R74.01 Elevation of levels of liver transaminase levels; R61 Generalized hyperhidrosis; R00.1 Bradycardia, unspecified; J45.909 Unspecified asthma, uncomplicated; G47.33 Obstructive sleep apnea (adult) (pediatric); K21.9 Gastro-esophageal reflux disease without esophagitis; F41.9 Anxiety disorder, unspecified; F32.A Depression, unspecified; F12.10 Cannabis abuse, uncomplicated; Z79.52 Long term (current) use of systemic steroids; Z79.83 Long term (current) use of bisphosphonates; Z79.899 Other long term (current) drug therapy

== ENCOUNTER 2022-10-05 12:49 | Day surgery (SDC) | payer OTHER ==
[~2022-10-05] VITALS: Ht 154.9 cm; Wt 66.5 kg
[~2022-10-05 12:49] MED LIST changes: +ACET500T15 PO; +BUSP10TA PO; +CALC600T60 PO; +CVS1CAP2 PO; +CYAN500T14 PO; +FLUT1INH2 INH; +MAGN200T PO; +VITA100093 PO; +VITMTA PO
[2022-10-05] MEDS ORDERED: fentaNYL 100 MCG/2 ML INJECTION As Ordered ONE (15:51)
[2022-10-05] MEDS ORDERED: propofoL 200 MG/20 ML VIAL As Ordered ONE ×2 (15:51→16:02)
[2022-10-05 16:25] VITALS: BP 127/61
== END 2022-10-05 16:40 | disposition home or self-care (01) ==
LOC: M OPP 12:49
PROVIDERS: ATTEND Internal Medicine Gastroenterology
DX: K44.9 Diaphragmatic hernia without obstruction or gangrene (principal); K22.2 Esophageal obstruction; K29.70 Gastritis, unspecified, without bleeding; R13.10 Dysphagia, unspecified; R10.13 Epigastric pain
CPT/HCPCS: 43239; 43249; 88305; J3010

== ENCOUNTER → 2023-04-07 | Outpatient (CLI) | payer OTHER | LOC: M WHC 12:07 | PROVIDERS: ATTEND Internal Medicine | DX: Z12.31 Encounter for screening mammogram for malignant neoplasm of breast (principal) ==

== ENCOUNTER → 2023-05-20 | Outpatient (CLI) | payer OTHER | LOC: M WUC 14:17 | PROVIDERS: ATTEND Nurse Practitioner Family | DX: M79.661 Pain in right lower leg (principal) ==

== ENCOUNTER → 2023-07-03 | Outpatient (CLI) | payer OTHER | LOC: M LAB 16:18 | PROVIDERS: ATTEND Physician Assistant Medical | DX: R05.9 Cough, unspecified (principal) ==

== ENCOUNTER → 2023-08-19 | Outpatient (CLI) | payer OTHER | LOC: M RAD 08:14 | PROVIDERS: ATTEND Internal Medicine Gastroenterology | DX: R13.10 Dysphagia, unspecified (principal) ==

== ENCOUNTER → 2023-09-14 | Outpatient (CLI) | payer OTHER ==
[~2023-09-14] MED LIST changes: +E-Z-GAS II EFFERVESCENT PACKET (SODIUM BICARB./CITRIC ACID/SIMETHICONE) As Ordered ONE; +E-Z-HD 98% w/w 340GM SUSP BTL As Ordered ONE; +E-Z-PAQUE 96% w/w SUSP 176GM BTL As Ordered ONE
== END ==
LOC: M RAD 09:06
PROVIDERS: ATTEND Internal Medicine Gastroenterology
DX: K21.9 Gastro-esophageal reflux disease without esophagitis (principal); K44.9 Diaphragmatic hernia without obstruction or gangrene

== ENCOUNTER → 2023-11-18 | Outpatient (REF) | payer OTHER ==
[~2023-11-18] MED LIST changes: -E-Z-GAS II EFFERVESCENT PACKET (SODIUM BICARB./CITRIC ACID/SIMETHICONE) As Ordered ONE; -E-Z-HD 98% w/w 340GM SUSP BTL As Ordered ONE; -E-Z-PAQUE 96% w/w SUSP 176GM BTL As Ordered ONE
[2023-11-18 18:01] LABS: ALBUMIN 3.7 G/DL (3.2-5.2); ALKALINE PHOSPHATASE 109 U/L (46-116); ALT/SGPT 18 U/L (7.0-40); AST/SGOT 11 U/L (<34); BILIRUBIN,TOTAL 0.9 MG/DL (0.3-1.2); BLOOD UREA NITROGEN 13 MG/DL (9-23); CALCIUM LEVEL 9.1 MG/DL (8.3-10.6); CARBON DIOXIDE LEVEL 29 MMOL/L (20-31); CHLORIDE LEVEL 106 MMOL/L (98-107); CREATININE FOR GFR 0.76 MG/DL (0.55-1.30); GLOMERULAR FILTRATION RATE > 60.0 (>45); GLUCOSE, FASTING 94 MG/DL (74-106); POTASSIUM SERUM 4.7 MMOL/L (3.5-5.1); SODIUM LEVEL 139 MMOL/L (136-145); TOTAL PROTEIN 6.5 G/DL (5.7-8.2)
[2023-11-18 18:02] LABS: HEMATOCRIT 38.5 % (36.0-47.0); HEMOGLOBIN 12.5 g/dl (12.0-15.5); MEAN CORPUSCULAR HEMOGLOBIN 28.9 pg (27.0-33.0); MEAN CORPUSCULAR HGB CONC 32.5 g/dl (32.0-36.5); MEAN CORPUSCULAR VOLUME 89.1 fl (80.0-96.0); PLATELET COUNT, AUTOMATED 227 10^3/uL (150-450); RED BLOOD COUNT 4.32 10^6/uL (4.00-5.40); WHITE BLOOD COUNT 6.6 10^3/uL (4.0-10.0)
== END ==
LOC: M LABDRWAD 17:18
PROVIDERS: ATTEND Internal Medicine
DX: R73.9 Hyperglycemia, unspecified (principal); J45.909 Unspecified asthma, uncomplicated; E78.00 Pure hypercholesterolemia, unspecified

== ENCOUNTER → 2024-02-23 | Outpatient (REF) | payer OTHER ==
[2024-02-23 15:29] LABS: BASO % 0.6 % (0.0-1.0); EOS # 0.2 10^3/uL (0.0-0.5); EOS % 4.1 % (0.0-3.0); HEMATOCRIT 38.7 % (36.0-47.0); HEMOGLOBIN 12.5 g/dl (12.0-15.5); LYMPH # 1.6 10^3/uL (1.5-5.0); LYMPH % 33.3 % (24.0-44.0); MEAN CORPUSCULAR HEMOGLOBIN 28.3 pg (27.0-33.0); MEAN CORPUSCULAR HGB CONC 32.3 g/dl (32.0-36.5); MEAN CORPUSCULAR VOLUME 87.8 fl (80.0-96.0); MONO # 0.3 10^3/uL (0.0-0.8); MONO % 6.2 % (2.0-8.0); NEUTROPHILS # 2.6 10^3/uL (1.5-8.5); NEUTROPHILS % 55.8 % (36.0-66.0); PLATELET COUNT, AUTOMATED 264 10^3/uL (150-450); RED BLOOD COUNT 4.41 10^6/uL (4.00-5.40); WHITE BLOOD COUNT 4.7 10^3/uL (4.0-10.0)
[2024-02-23 16:24] LABS: ALBUMIN 3.4 G/DL (3.2-5.2); ALKALINE PHOSPHATASE 93 U/L (46-116); ALT/SGPT 14 U/L (7.0-40); AST/SGOT 12 U/L (<34); BILIRUBIN,TOTAL 0.7 MG/DL (0.3-1.2); BLOOD UREA NITROGEN 18 MG/DL (9-23); CALCIUM LEVEL 9.1 MG/DL (8.3-10.6); CARBON DIOXIDE LEVEL 30 MMOL/L (20-31); CHLORIDE LEVEL 109 MMOL/L (98-107); CREATININE FOR GFR 0.74 MG/DL (0.55-1.30); GLOMERULAR FILTRATION RATE > 60.0 (>45); GLUCOSE, FASTING 65 MG/DL (74-106); POTASSIUM SERUM 4.2 MMOL/L (3.5-5.1); SODIUM LEVEL 142 MMOL/L (136-145); TOTAL PROTEIN 6.4 G/DL (5.7-8.2)
== END ==
LOC: M LABDRWAD 14:58
PROVIDERS: ATTEND Internal Medicine
DX: K21.9 Gastro-esophageal reflux disease without esophagitis (principal)

== ENCOUNTER → 2024-03-01 | Outpatient (REF) | payer OTHER | LOC: M LAB REF 22:12 | PROVIDERS: ATTEND Physician Assistant | DX: B34.9 Viral infection, unspecified (principal) ==

== ENCOUNTER → 2024-06-01 | Outpatient (REF) | payer OTHER ==
[2024-06-01 17:50] LABS: RSV AMPLIFICATION NEGATIVE (NEGATIVE)
== END ==
LOC: M LAB REF 16:13
PROVIDERS: ATTEND Internal Medicine
DX: J06.9 Acute upper respiratory infection, unspecified (principal); R11.0 Nausea; M79.10 Myalgia, unspecified site

== ENCOUNTER → 2025-02-23 | Outpatient (REF) | payer OTHER ==
[2025-02-23 18:00] LABS: BASO # 0.0 10^3/uL (0.0-0.2); BASO % 0.1 % (0.0-1.0); EOS # 0.0 10^3/uL (0.0-0.5); EOS % 0.0 % (0.0-3.0); LYMPH # 0.8 10^3/uL (1.5-5.0); LYMPH % 7.3 % (24.0-44.0); MONO # 0.2 10^3/uL (0.0-0.8); MONO % 2.2 % (2.0-8.0); NEUTROPHILS # 9.8 10^3/uL (1.5-8.5); NEUTROPHILS % 89.6 % (36.0-66.0); PLATELET COUNT, AUTOMATED 253 10^3/uL (150-450)
[2025-02-23 18:26] LABS: ALT/SGPT 21 U/L (7.0-40); AST/SGOT 14 U/L (<34); CALCIUM LEVEL 8.9 MG/DL (8.3-10.6); CARBON DIOXIDE LEVEL 27 MMOL/L (20-31); CHLORIDE LEVEL 103 MMOL/L (98-107); CHOLESTEROL LEVEL 205 MG/DL (<200); CHOLESTEROL RISK RATIO 2.07 (<5); CREATININE FOR GFR 0.71 MG/DL (0.55-1.30); GLOMERULAR FILTRATION RATE > 90.0 (>45); LDL CHOLESTEROL 91.2 MG/DL (<100); NON-HDL-C 106.4 MG/DL; POTASSIUM SERUM 3.9 MMOL/L (3.5-5.1); SODIUM LEVEL 141 MMOL/L (136-145); TRIGLYCERIDES LEVEL 76 MG/DL (<150)
== END ==
LOC: M LAB REF 17:17 → M LABDRWAD 17:17
PROVIDERS: ATTEND Internal Medicine
DX: R00.2 Palpitations (principal); Z79.899 Other long term (current) drug therapy; E78.00 Pure hypercholesterolemia, unspecified

== ENCOUNTER → 2025-04-23 | Outpatient (CLI) | payer OTHER | LOC: M ADAMS 15:39 | PROVIDERS: ATTEND Internal Medicine | DX: I49.1 Atrial premature depolarization (principal); G47.33 Obstructive sleep apnea (adult) (pediatric) ==